=== PATIENT | female | born 1980 | race American Indian/Alaskan Native ===

== ENCOUNTER 2021-04-07 09:46 | Emergency (ER) | payer SELFPAY ==
[2021-04-07 09:58] VITALS: BP 135/87
--- NOTE | 2021-04-07 12:30 | Emergency Department Report ---
ED Back Pain/Injury HPI - General Chief Complaint: Extremity Problem,Nontraumatic Stated Complaint: BACK AND RT SIDE PAIN Time Seen by Provider: 04/07/21 12:17 Source: patient Limitations: No Limitations - History of Present Illness Initial Comments: Patient is a 41-year-old female presents emergency room with complaints of right lower back pain that radiates down her right leg that began 2 weeks ago. She states that she has been taking jjmi-[id number] medications without much relief. She denies any fall or injury. She states that she works on her feet 6 days a week. She denies any fever, nausea, vomiting, diarrhea, urinary symptoms, abdominal pain, numbness, weakness, bowel or bladder incontinence. She states also last week she was cleaning a mirror and felt pain and a tingling sensation in her right arm but that has resolved. She states that she continues to have the right lower back pain that radiates down the right leg. Past medical history of asthma and a brain aneurysm which she reports that she had a repair. no hx of DM. Patient denies any allergies to medications. Last menstrual cycle 03/13/2021, she denies any possibility of . - Related Data Previous Rx's Medication Instructions Recorded Last Taken Type Menthol/Camphor [[place] 1 applicatio TP BID #18 oint...g. 04/07/21 Unknown Rx Ointment] Naproxen [EC-Naprosyn] 375 mg PO BID PRN #20 tablet. 04/07/21 Unknown Rx Prednisone [predniSONE 10 mg 10 mg PO .TAPER #1 tab.ds.pk 04/07/21 Unknown Rx (6-Day Pack, 21 Tabs)] methOCARBAMOL [Robaxin TAB] 500 mg PO BID PRN #14 tab 04/07/21 Unknown Rx traMADoL [Ultram 50 MG tab] 50 mg PO Q6HR PRN #7 tablet 04/07/21 Unknown Rx Allergies Allergy/AdvReac Type Severity Reaction Status Date / Time No Known Allergies Allergy Verified 04/07/21 09:54 ED Review of Systems ROS: Stated complaint: BACK AND RT SIDE PAIN Other details as noted in HPI Comment: All other systems reviewed and negative ED Past Medical Hx - Past Medical History Previous Medical History?: Yes Additional medical history: ruptured brain aneurysm [id number] - Surgical History Past Surgical History?: Yes Additional Surgical History: brain aneurysm - Social History Smoking Status: Former Smoker Substance Use Type: None - Medications Home Medications: Home Medications Medication Instructions Recorded Confirmed Last Taken Type Menthol/Camphor [[place] 1 applicatio TP BID #18 oint...g. 04/07/21 Unknown Rx Ointment] Naproxen [EC-Naprosyn] 375 mg PO BID PRN #20 tablet.dr 04/07/21 Unknown Rx Prednisone [predniSONE 10 mg 10 mg PO .TAPER #1 tab.ds.pk 04/07/21 Unknown Rx (6-Day Pack, 21 Tabs)] methOCARBAMOL [Robaxin TAB] 500 mg PO BID PRN #14 tab 04/07/21 Unknown Rx traMADoL [Ultram 50 MG tab] 50 mg PO Q6HR PRN #7 tablet 04/07/21 Unknown Rx ED Physical Exam - General Limitations: No Limitations General appearance: alert, in no apparent distress - Head Head exam: Present: atraumatic, normocephalic - Eye Eye exam: Present: normal appearance - ENT ENT exam: Present: mucous membranes moist - Neck Neck exam: Present: normal inspection, full ROM. Absent: tenderness, meningismus - Respiratory Respiratory exam: Present: normal lung sounds bilaterally. Absent: respiratory distress, wheezes, rales, rhonchi, stridor, chest wall tenderness, accessory muscle use, decreased breath sounds, prolonged expiratory - Cardiovascular Cardiovascular Exam: Present: regular rate, normal rhythm, normal heart sounds. Absent: systolic murmur, diastolic murmur, rubs, gallop - Back Exam Back exam: Present: normal inspection, full ROM, paraspinal tenderness (right sided lumbar paraspinal muscular ttp, no midline C-spine, T-spine or L-spine ttp, no step offs, no deformities). Absent: vertebral tenderness - Neurological Exam Neurological exam: Present: alert, oriented X3, CN II-XII intact, normal gait. Absent: motor sensory deficit - Psychiatric Psychiatric exam: Present: normal affect, normal mood - Skin Skin exam: Present: warm, dry, intact ED Course Vital Signs 04/07/21 09:54 Temperature 98.5 F Pulse Rate 62 Respiratory 16 Rate Blood Pressure 135/87 O2 Sat by Pulse 98 Oximetry ED Medical Decision Making - Medical Decision Making Patient is a 41-year-old female presents emergency room with complaints of right lower back pain that radiates down her right leg that began 2 weeks ago. She states that she has been taking [id number] medications without much relief. She denies any fall or injury. She states that she works on her feet 6 days a week. She denies any fever, nausea, vomiting, diarrhea, urinary symptoms, abdominal pain, numbness, weakness, bowel or bladder incontinence. She states also last week she was cleaning a mirror and felt pain and a tingling sensation in her right arm but that has resolved. She states that she continues to have the right lower back pain that radiates down the right leg. Past medical history of asthma and a brain aneurysm which she reports that she had a repair. no hx of DM. Patient denies any allergies to medications. Last menstrual cycle 03/13/2021, she denies any possibility of . Vitals are stable. On exam:right sided lumbar paraspinal muscular ttp, no midline C-spine, T-spine or L-spine ttp, no step offs, no deformities, no focal neuro deficits. Symptoms and examination are most consistent with sciatica versus lumbar radiculopathy. Patient has no red flag warning signs of back pain, no trauma, no unexplained weight loss, no fever, no neuro deficits, ages 9 greater than 50, no IV drug use, no steroid use, no history of cancer. Patient given prescriptions. Advised patient Please use medication as prescribed. Do not drive or operate heavy machinery while taking muscle relaxer or severe pain medication. May use ice pack, heating pad, rest, and epsom salt bath. May do stretches for sciatica. Follow-up with a spine doctor. Follow-up with a primary care doctor. Return to emergency room for new or worsening symptoms Critical care attestation.: If time is entered above; I have spent that time in minutes in the direct care of this critically ill patient, excluding procedure time. ED Disposition Clinical Impression: Low back pain Qualifiers: Chronicity: acute Back pain laterality: right Sciatica presence: with sciatica Sciatica laterality: sciatica of right side Qualified Code(s): M54.41 - Lumbago with sciatica, right side Disposition: DC-01 TO HOME OR SELFCARE Is pt being admited?: No Does the pt Need Aspirin: No Condition: Stable Instructions: Sciatica Additional Instructions: Please use medication as prescribed. Do not drive or operate heavy machinery while taking muscle relaxer or severe pain medication. May use ice pack, heating pad, rest, and epsom salt bath. May do stretches for sciatica. Follow- up with a spine doctor. Follow-up with a primary care doctor. Return to emergency room for new or worsening symptoms Prescriptions: Naproxen [EC-Naprosyn] 375 mg PO BID PRN #20 tablet.dr PRN Reason: Pain, Moderate (4-6) Prednisone [predniSONE 10 mg (6-Day Pack, 21 Tabs)] 10 mg PO .TAPER #1 tab.ds.pk methOCARBAMOL [Robaxin TAB] 500 mg PO BID PRN #14 tab PRN Reason: muscle spasm/pain Menthol/Camphor [[place] Ointment] 1 applicatio TP BID #18 oint...g. traMADoL [Ultram 50 MG tab] 50 mg PO Q6HR PRN #7 tablet PRN Reason: Pain , Severe (7-10) Referrals: VERITO CARL II, MD [Staff Physician] - 2-3 Days [facility] [Provider Group] - 2-3 Days HARRIET BALDWIN MD [Staff Physician] - 2-3 Days PREM AMOS MD [Staff Physician] - 2-3 Days Forms: Work/School Release Form(ED) Time of Disposition: 12:28 Print Language: CHINESE
== END 2021-04-07 12:58 | disposition home or self-care (01) ==
LOC: ED 09:46
DX: M54.5 Low back pain (principal); Z79.899 Other long term (current) drug therapy; Z87.891 Personal history of nicotine dependence; Z98.890 Other specified postprocedural states
CPT/HCPCS: 99282